=== PATIENT | male | born 1975 | race Caucasian/White ===

== ENCOUNTER 2017-09-15 21:53 | Emergency (ER) | payer BC ==
[2017-09-15] MEDS ORDERED: Lidocaine/EPINEPHrine/Tetracaine Soln 1 ML TOP ONE (22:38)
--- NOTE | 2017-09-15 23:39 | EDM.PDOC ---
ED HPI GENERAL MEDICAL PROBLEM - General Chief Complaint: Laceration Stated Complaint: FELL ON ICE HIT CHIN Time Seen by Provider: 09/15/17 22:29 Source of Information: Reports: Patient History Limitations: Reports: No Limitations - History of Present Illness INITIAL COMMENTS - FREE TEXT/NARRATIVE: The patient states that he slipped on ice, falling forward, and hitting his chin on the concrete ground around 20:30 tonight, suffering a laceration to his anterior right chin. He acknowledges that he has been drinking alcohol tonight. He denies any other injuries, including to his hands and knees. He states that it was no loss of consciousness. No prior similar injury. His last tetanus vaccination was about 2 years ago. Face Pain Score (Numeric/FACES): 5 - Related Data Allergies Allergy/AdvReac Type Severity Reaction Status Date / Time propofol Allergy Hives Verified 04/16/15 09:40 sodium Allergy Hives Verified 04/16/15 09:31 phenol Allergy Hives Uncoded 04/16/15 09:37 Home Meds: Home Meds Cyanocobalamin/FA/Pyridoxine [Folbee] 0 mg PO DAILY 09/15/17 [History] Famotidine [Pepcid] 0 mg PO DAILY 09/15/17 [History] Pantoprazole Sodium [Protonix] 40 mg PO DAILY 09/15/17 [History] Past Medical History - Past Surgical History HEENT Surgical History: Reports: Tonsillectomy GI Surgical History: Reports: Bariatric Procedure Social & Family History - Tobacco Use Smoking Status *Q: Former Smoker Used Tobacco, but Quit: Yes Month Tobacco Last Used: 12 yr - Caffeine Use Caffeine Use: Reports: Coffee, Energy Drinks, Soda, Tea - Recreational Drug Use Recreational Drug Use: No ED ROS GENERAL - Review of Systems Review Of Systems: ROS reveals no pertinent complaints other than HPI. ED EXAM, SKIN/RASH Exam: See Below Exam Limited By: No Limitations General Appearance: Alert, WD/WN, No Apparent Distress Eye Exam: Bilateral Eye: Normal Inspection Ears: Normal External Exam, Normal Canal, Hearing Grossly Normal, Normal TMs Nose: Normal Inspection, Normal Mucosa, No Blood Throat/Mouth: Normal Inspection, Normal Lips, Normal Teeth, Normal Gums, Normal Oropharynx, Normal Voice, No Airway Compromise Head: Normocephalic, Other ("V"-shaped laceration to the anterior right francisco, with each arm measuring approximately 0.75 cm, for total of a 1.5 cm laceration. No obvious contamination. No associated swelling, although there is a small abrasion to the anterior midline chin. Minimal, if any, tenderness to the area.) ED SKIN PROCEDURES - Laceration/Wound Repair Right Face Lac/Wound length In cm: 1.5 Appearance: Subcutaneous, Irregular, Clean Distal NVT: Neuro & Vascular Intact, No Tendon Injury Anesthetic Type: Topical (LET) Skin Prep: Providone-Iodine (Betadine) Exploration/Debridement/Repair: Wound Explored, In a Bloodless Field, Explored to Base, No Foreign Material Found, Wound Margins Revised Closed with: Sutures Suture Size: 3-0 # of Sutures: 3 Suture Type: Nylon, Interrupted, Simple Sterile Dressing Applied: None Tetanus Status Addressed: Yes Complications: No Course - Vital Signs Last Recorded V/S: Last Vital Signs Temp 36.5 C 09/15/17 22:12 Pulse 78 09/15/17 22:12 Resp 20 09/15/17 22:12 BP 137/100 H 09/15/17 22:12 Pulse Ox 96 09/15/17 22:12 - Orders/Labs/Meds Meds: Medications Discontinued Medications Generic Name Dose Route Start Last Admin Trade Name Freq PRN Reason Stop Dose Admin Lidocaine/Tetracaine 1 ml 09/15/17 22:38 09/15/17 22:46 Let Soln TOP 09/15/17 22:39 1 ml ONETIME ONE Administration - Re-Assessments/Exams Free Text/Narrative Re-Assessment/Exam: 09/15/17 23:36 The patient's chin laceration was sutured with 3 simple interrupted sutures using 3-0 Ethilon. The patient tolerated the procedure well. Care of the wound was described to the patient. Antibiotics will not be necessary so long as the patient follows my care instructions. The sutures should be ready for removal in 7 days. Departure - Departure Time of Disposition: 23:36 Disposition: Home, Self-Care 01 Condition: Good Clinical Impression: Laceration of chin - Discharge Information Instructions: Laceration Care, Adult, [id number] Referrals: Kenny Canseco MD [Primary Care Provider] - Forms: ED Department Discharge Additional Instructions: You were seen in the emergency room after slipping and falling on ice, cutting your chin. Your wound was closed with 3 sutures. Keep the wound clean with ordinary soap and water. Do not shave the area. Take [id number] Tylenol or ibuprofen as needed for discomfort. The sutures should be ready for removal in on 09/22/2017. This can be done at the walk-in clinic, at your doctor's office, or in the ER. If any other problems, please do not hesitate to return to the ER.
== END 2017-09-15 23:45 | disposition home or self-care (01) ==
LOC: JD.ED 21:53
DX: S01.81XA Laceration without foreign body of other part of head, initial encounter (principal); Z87.891 Personal history of nicotine dependence; Z79.899 Other long term (current) drug therapy; Z88.8 Allergy status to other drugs, medicaments and biological substances; Z91.09 Other allergy status, other than to drugs and biological substances; W00.2XXA Other fall from one level to another due to ice and snow, initial encounter
CPT/HCPCS: 12011; 99283; A9270; 99282-25

== ENCOUNTER 2017-10-07 19:05 | Emergency (ER) | payer BC ==
[2017-10-07] MEDS ORDERED: Sodium Chloride 0.9% 1,000 ML IV SCH (20:00)
--- NOTE | 2017-10-07 20:04 | EDM.PDOC ---
ED HPI GENERAL MEDICAL PROBLEM - General Chief Complaint: Abdominal Pain Stated Complaint: ABDOMINAL PAIN Time Seen by Provider: 10/07/17 19:34 Source of Information: Reports: Patient, Family (Son) History Limitations: Reports: Intoxication (possible) - History of Present Illness INITIAL COMMENTS - FREE TEXT/NARRATIVE: The patient states that he has been experiencing abdominal pain for the past 1.5 years. He underwent a colonoscopy last year which was negative. He states that he was initially placed on Pepcid, which did not help, then Prilosec, which he continues to take, along with occasional Pepcid, but states that his pain continues. The patient states that he has not previously undergone a CT scan evaluation of his abdomen. The patient now presents to the ED, stating that he ate a bagel this morning, and it increased his pain, then ate again around 14:00, which again increased his pain. He states that this pattern is no different than usual. When asked specifically why he is here today if his pain is no different than it has been for the past year and a half, he replied "I'm just fucking tired of it". The patient is unable to describe the character of the pain, other than it " just hurts". The pain is not modifiable, and does not radiate. The patient denies any associated nausea, emesis, constipation, diarrhea, urinary symptoms, or fever. The patient states that he underwent a gastric bypass on 10/09/2014, and that he is overdue to follow-up with his bariatric surgeon. The patient states that he drinks alcohol socially, and, in fact, was intoxicated when seen by me in this ED on 09/15/2017, and appears to be modestly intoxicated at this time, although he states that he has not had anything to drink today. The patient's PCP is Dr. Kenny Carlos. Bilateral Lower Abdominal Pain Score (Numeric/FACES): 9 - Related Data Allergies Allergy/AdvReac Type Severity Reaction Status Date / Time phenol Allergy Hives Uncoded 10/07/17 19:21 Home Meds: Home Meds Cyanocobalamin/FA/Pyridoxine [Folbee] 0 mg PO DAILY 09/15/17 [History] Famotidine [Pepcid] 0 mg PO DAILY 09/15/17 [History] Pantoprazole Sodium [Protonix] 40 mg PO DAILY 09/15/17 [History] Past Medical History HEENT History: Reports: Impaired Vision Gastrointestinal History: Reports: Other (See Below) (Chronic abdominal pain) - Past Surgical History HEENT Surgical History: Reports: Tonsillectomy GI Surgical History: Reports: Bariatric Procedure (Gastric bypass 10/09/2014) Social & Family History - Family History Family Medical History: Noncontributory - Tobacco Use Smoking Status *Q: Former Smoker Years of Tobacco use: 17 Packs/Tins Daily: 3 Month Tobacco Last Used: Quit around 2007 - Caffeine Use Caffeine Use: Reports: Coffee, Energy Drinks, Soda, Tea - Alcohol Use Alcohol Use History: Yes Alcohol Use Frequency: Socially - Recreational Drug Use Recreational Drug Use: No - Living Situation & Occupation Living situation: Reports: Single, with Family (Mother) Occupation: Employed ([employer]) ED ROS GENERAL - Review of Systems Review Of Systems: ROS reveals no pertinent complaints other than HPI. GI/Abdominal: Reports: Diarrhea (about 3 weeks ago), Vomiting (about 3 weeks ago ) ED EXAM, GI/ABD - Physical Exam Exam: See Below Exam Limited By: No Limitations General Appearance: Alert, WD/WN, No Apparent Distress Eyes: Bilateral: Normal Appearance, EOMI Ears: Normal External Exam, Hearing Grossly Normal Nose: Normal Inspection, No Blood Throat/Mouth: Normal Inspection, Normal Lips, Normal Voice, No Airway Compromise Head: Atraumatic, Normocephalic Neck: Normal Inspection, Full Range of Motion Respiratory/Chest: No Respiratory Distress, Lungs Clear, Normal Breath Sounds, No Accessory Muscle Use Cardiovascular: Normal Peripheral Pulses, Regular Rate, Rhythm, No Gallop, No JVD, No Murmur, No Rub GI/Abdominal Exam: Normal Bowel Sounds, Soft, No Organomegaly, No Distention, No Abnormal Bruit, No Mass, Pelvis Stable, Tender (Mild, generalized, non-focal) (Male) Exam: Deferred Rectal (Males) Exam: Deferred Back Exam: Normal Inspection, Full Range of Motion. No: CVA Tenderness (L), CVA Tenderness (R) Extremities: Normal Inspection, Normal Range of Motion, No Pedal Edema, Normal Capillary Refill Neurological: Alert, Oriented, No Motor/Sensory Deficits, Other (Possible alcohol intoxication, with mildly slurred speech, intolerance to answering questions) Psychiatric: Normal Affect Skin Exam: Warm, Dry, Intact, Normal Color, No Rash Course - Vital Signs Last Recorded V/S: Last Vital Signs Temp 36.4 C 10/07/17 19:16 Pulse 77 10/07/17 19:16 Resp 18 10/07/17 19:16 BP 138/101 H 10/07/17 19:16 Pulse Ox 98 10/07/17 19:16 - Orders/Labs/Meds Orders: Active Orders 24 hr Category Date Time Status Abdomen Pelvis w Cont [CT] Stat Exams 10/07/17 19:56 Taken Sodium Chloride 0.9% [Normal Saline] 1,000 ml Med 10/07/17 20:00 Active IV ASDIRECTED Sodium Chloride 0.9% [Saline Flush] Med 10/07/17 20:34 Active 10 ml FLUSH ONETIME PRN Medication Orders Sodium Chloride (Normal Saline) 1,000 mls @ 150 mls/hr IV ASDIRECTED MARY Last Admin: 10/07/17 20:14 Dose: 150 mls/hr Sodium Chloride (Saline Flush) 10 ml FLUSH ONETIME PRN PRN Reason: IV FLUSH Last Admin: 10/07/17 21:20 Dose: 10 ml Labs: Laboratory Tests 10/07/17 10/07/17 10/07/17 Range/Units 20:05 20:05 20:10 WBC 5.07 (4.23-9.07) K/mm3 RBC 5.33 (4.63-6.08) M/mm3 Hgb 14.8 (13.7-17.5) gm/L Hct 44.3 (40.1-51.0) % MCV 83.1 (79.0-92.2) fl MCH 27.8 (25.7-32.2) pg MCHC 33.4 (32.2-35.5) g/dl RDW Std Deviation 40.2 (35.1-43.9) fL Plt Count 251 (163-337) K/mm3 MPV 9.7 (9.4-12.3) fl Neutrophils % (Manual) 44 (40-60) % Band Neutrophils % 1 (0-10) % Lymphocytes % (Manual) 46 H (20-40) % Atypical Lymphs % 0 % Monocytes % (Manual) 4 (2-10) % Eosinophils % (Manual) 3 (0.8-7.0) % Basophils % (Manual) 2 H (0.2-1.2) Platelet Estimate Adequate RBC Morph Comment Normal Sodium 141 (136-145) mEq/L Potassium 4.3 (3.5-5.1) mEq/L Chloride 105 (98-107) mEq/L Carbon Dioxide 24 (21-32) mEq/L Anion Gap 16.3 H (5-15) BUN 11 (7-18) mg/dL Creatinine 0.8 (0.7-1.3) mg/dL Est Cr Clr Drug Dosing 116.38 mL/min Estimated GFR (MDRD) > 60 (>60) mL/min BUN/Creatinine Ratio 13.8 L (14-18) Glucose 102 (74-106) mg/dL Calcium 8.6 (8.5-10.1) mg/dL Total Bilirubin 1.2 H (0.2-1.0) mg/dL AST 16 (15-37) U/L ALT 24 (16-63) U/L Alkaline Phosphatase 74 (46-116) U/L Total Protein 6.6 (6.4-8.2) g/dl Albumin 3.8 (3.4-5.0) g/dl Globulin 2.8 gm/dL Albumin/Globulin Ratio 1.4 (1-2) Lipase 145 (73-393) U/L Urine Color Yellow (Yellow) Urine Appearance Clear (Clear) Urine pH 6.0 (5.0-8.0) Ur Specific [place] > or = 1.030 (1.005-1.030) Urine Protein Negative (Negative) Urine Glucose (UA) Negative (Negative) Urine Ketones Trace H (Negative) Urine Occult Blood Negative (Negative) Urine Nitrite Negative (Negative) Urine Bilirubin Negative (Negative) Urine Urobilinogen 0.2 (0.2-1.0) Ur Leukocyte Esterase Negative (Negative) Urine RBC 0-5 (0-5) /hpf Urine WBC 0-5 (0-5) /hpf Ur Epithelial Cells 0-5 (0-5) /hpf Urine Bacteria Occasional (FEW) /hpf Urine Mucus Few (FEW) /hpf Meds: Medications Generic Name Dose Route Start Last Admin Trade Name Freq PRN Reason Stop Dose Admin Sodium Chloride 1,000 mls @ 150 mls/hr 10/07/17 20:00 10/07/17 20:14 Normal Saline IV 150 mls/hr ASDIRECTED MARY Administration Sodium Chloride 10 ml 10/07/17 20:34 10/07/17 21:20 Saline Flush FLUSH 10 ml ONETIME PRN Administration IV FLUSH Discontinued Medications Generic Name Dose Route Start Last Admin Trade Name [place] PRN Reason Stop Dose Admin Diatrizoate Meglum/Diatrizoate Sod 120 ml 10/07/17 20:34 10/07/17 21:19 Gastrografin 37% PO 10/07/17 20:35 90 ml ONETIME ONE Administration Iopamidol 150 ml 10/07/17 20:34 10/07/17 21:19 Isovue-300 (61%) IVPUSH 10/07/17 20:35 125 ml ONETIME ONE Administration - Re-Assessments/Exams Free Text/Narrative Re-Assessment/Exam: 10/07/17 23:43 CT of the abdomen and pelvis with oral and IV contrast is read by [facility] as: 1. Moderate amount of stool in the colon 2. Dusky appearance to the central mesenteric fat which can be seen as a normal variant or mesenteric panniculitis. 3. Mild pulmonary edema. 10/07/17 23:51 Test results discussed with the patient and his son. 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 There are no signs of obstruction, therefore the recommended treatment is tamoxifen and prednisone , with reassessment in 3 months. These medications would not be appropriate for me to start here in the ED. I will refer the patient to Dr. Dos Santos, a Business Quality Assurance Analyst at [facility]. I will push the CT images to [facility] now. Departure - Departure Time of Disposition: 23:58 Disposition: Home, Self-Care 01 Condition: Good Clinical Impression: Mesenteric panniculitis - Discharge Information Referrals: Kenny Canseco MD [Primary Care Provider] - Nicole Dos Santos MD [Ordering Only Provider] - Forms: ED Department Discharge Additional Instructions: You were seen in the emergency room for lower abdominal pain for the past one and a half years. Workup in the ER included blood work, a urinalysis, and a CT scan of your abdomen and pelvis. Your CT scan indicates that you MIGHT have a condition known as mesenteric panniculitis, an inflammatory process of the intestines that can cause scarring. We recommend that you follow-up with the Business Quality Assurance Analyst Dr. Dos Santos at the next available appointment. He can review your CT scan and determine for himself if you have this condition. Your CT scan images have already been sent to [facility]. If any other problems, please do not hesitate to return to the ER. - My Orders Last 24 Hours: My Active Orders 10/07/17 19:56 Abdomen Pelvis w Cont [CT] Stat 10/07/17 20:00 Sodium Chloride 0.9% [Normal Saline] 1,000 ml IV ASDIRECTED 10/07/17 20:34 Sodium Chloride 0.9% [Saline Flush] 10 ml FLUSH ONETIME PRN - Assessment/Plan Last 24 Hours: My Active Orders 10/07/17 19:56 Abdomen Pelvis w Cont [CT] Stat 10/07/17 20:00 Sodium Chloride 0.9% [Normal Saline] 1,000 ml IV ASDIRECTED 10/07/17 20:34 Sodium Chloride 0.9% [Saline Flush] 10 ml FLUSH ONETIME PRN
[2017-10-07] MEDS ORDERED: Sodium Chloride 0.9% 10 ML Syringe FLUSH PRN (20:34)
[2017-10-07] MEDS ORDERED: Iopamidol 612 MG/ML 150 ML Bottle IVPUSH ONE (20:34)
[2017-10-07] MEDS ORDERED: Diatrizoate Meglumine/Diatrizoate Sodium 37% 120 ML Bottle PO ONE (20:34)
--- NOTE | 2017-10-08 12:26 | CT ---
CT abdomen and pelvis Technique: Multiple axial sections were obtained from above the dome of the diaphragm inferiorly through the pubic symphysis. Intravenous and oral contrast has been given. Comparison: Previous right upper quadrant abdominal ultrasound of 04/16/15, no prior CT exam. Findings: Lung markings are slightly increased within both lung bases. Liver shows no focal parenchymal abnormality. Spleen appears within normal limits. Small hiatal hernia is seen with mild gastroesophageal reflux. Adrenal glands show no nodule. Pancreas appears within normal limits. Kidneys show symmetric contrast enhancement without hydronephrosis or mass. Aorta shows minimal atherosclerotic change without aneurysmal dilatation. Atherosclerotic change continues into the iliac vessels. No pelvic mass or adenopathy is seen. Abdominal wall shows no hernia. Bowel appears within normal limits. Very slight haziness is noted within the central mesentery with adjacent mesenteric lymph nodes most likely incidental. No free fluid or inflammatory change is seen. Bone window settings were reviewed which appear within normal limits for the patient's age with incidental scattered degenerative change. Impression: 1. Slight haziness within the central mesentery with mild adjacent mesenteric lymph nodes. These findings are felt to be normal variant. 2. Lung markings minimally increased within both lung bases most likely accentuated from technique. Obtain chest x-ray if patient has any pulmonary symptoms. 3. Small hiatal hernia with minimal gastroesophageal reflux. 4. Nothing acute is otherwise appreciated on CT study of the abdomen and pelvis. Diagnostic code #3 Agree with preliminary report issued by [facility] ([facility] preliminary report dictated on 10/07/17, 10:47 PM Central Time)
== END 2017-10-08 00:09 | disposition home or self-care (01) ==
LOC: JD.ED 19:05
DX: K65.4 Sclerosing mesenteritis (principal); Z87.891 Personal history of nicotine dependence; Z79.899 Other long term (current) drug therapy; Z88.8 Allergy status to other drugs, medicaments and biological substances
CPT/HCPCS: 36415; 74177; 80053; 81001; 83690; 85025; 96360; 96361; 99284; J7040; J7050; Q9963; Q9967

== ENCOUNTER 2018-04-10 07:03 | Emergency (ER) | payer BC ==
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
[2018-04-10] MEDS ORDERED: Sodium Chloride 0.9% 10 ML Syringe FLUSH PRN (08:18)
[2018-04-10] MEDS ORDERED: HYDROmorphone 0.5 MG/0.5 ML SYRINGE IVPUSH ONE (08:53)
[2018-04-10] MEDS ORDERED: Sodium Chloride 0.9% 10 ML Syringe FLUSH ONE (08:56)
[2018-04-10] MEDS ORDERED: Iopamidol 755 Mg/ML 100 ML Bottle IVPUSH ONE (08:56)
[2018-04-10] MEDS ORDERED: Sodium Chloride 0.9% 100 ML IV SCH (09:00)
--- NOTE | 2018-04-10 09:18 | CR ---
Chest: Two views of the chest were obtained. Comparison: No prior chest x-ray. Heart is enlarged. Pulmonary vessels are congested. Ivan B lines are noted compatible with early interstitial pulmonary edema. No alveolar densities are seen at this time. Minimal thickening of the minor fissure seen likely representing fluid. Impression: 1. Findings compatible with CHF as described above. Diagnostic code #3
--- NOTE | 2018-04-10 10:22 | CT ---
CT chest Technique: Multiple axial sections through the chest were obtained. Intravenous contrast was utilized. Findings: Pulmonary arteries are well opacified. No filling defects are seen to indicate pulmonary embolism. Heart is diffusely enlarged. Prominent coronary artery calcification is seen. Small right sided pleural effusion is seen. Multiple small peripheral nodules are seen within both lungs which are noncalcified. Thickening around the vascular markings is seen compatible with pulmonary vascular congestion. Several mediastinal lymph nodes are seen which are felt to be within normal limits. Small nonobstructing calculus is noted within the left kidney. Previous bowel surgery/gastric surgery is noted. Bone window settings were reviewed which shows mild scattered degenerative change within the spine. Impression: 1. Cardiomegaly with pulmonary vascular congestion and small right-sided pleural effusion. 2. No findings of pulmonary embolism. 3. Fairly extensive coronary artery calcification. 4. Multiple small peripheral nodules within both lungs which show no calcifications and are nonspecific regarding etiology. Recommend follow-up noncontrast chest CT in 3 months to further evaluate for stability. 5. Other incidental findings. Diagnostic code #9
[2018-04-10] MEDS ORDERED: Aspirin 81 MG Tab.Chew PO ONE (11:37)
[2018-04-10] MEDS ORDERED: Heparin Sodium 5,000 Units/ML Vial IVPUSH ONE (11:37)
[2018-04-10] MEDS ORDERED: Nitroglycerin/D5W 25 MG/250 ML BOTTLE IV SCH (11:45)
[2018-04-10] MEDS ORDERED: Heparin Sodium/D5W 25,000 UNITS/500 ML BAG IV SCH (11:45)
== END 2018-04-10 12:33 ==
LOC: JD.ED 07:03
DX: I21.4 Non-ST elevation (NSTEMI) myocardial infarction (principal); I10 Essential (primary) hypertension; E78.00 Pure hypercholesterolemia, unspecified; I50.9 Heart failure, unspecified
CPT/HCPCS: 36415; 71046; 71275; 80053; 83880; 84484; 85025; 85379; 93005; 96365; 96368; 96375; 96376; 99285; A9270; J1170; J1644; J3490; J7030; J7050; Q9967; 93010; 99284-25

== ENCOUNTER 2022-08-07 23:32 | Emergency (ER) | payer OTHER ==
[2022-08-08] MEDS ORDERED: Oxymetazoline 0.05% Nasal Spray 30 ML Bottle NAS ONE (01:00)
[2022-08-08] MEDS ORDERED: Oxymetazoline 0.05% Nasal Spray 30 ML Bottle ONE (01:15)
== END 2022-08-08 03:00 | disposition home or self-care (01) ==
LOC: JD.ED 23:32
DX: R04.0 Epistaxis (principal); E78.00 Pure hypercholesterolemia, unspecified; I10 Essential (primary) hypertension; Z79.82 Long term (current) use of aspirin; Z79.01 Long term (current) use of anticoagulants; Z79.899 Other long term (current) drug therapy; Z88.8 Allergy status to other drugs, medicaments and biological substances; Z88.6 Allergy status to analgesic agent
CPT/HCPCS: 30901; 99283; A9270

== ENCOUNTER 2022-09-01 13:27 | Emergency (ER) | payer OTHER ==
[2022-09-01] MEDS ORDERED: Tranexamic Acid 1,000 MG/10 ML Vial ONE (13:57)
[2022-09-01] MEDS ORDERED: Lidocaine 1% with EPINEPHrine 1:100,000 10 ML MDV INJECT ONE (13:57)
[2022-09-01] MEDS ORDERED: Oxymetazoline 0.05% Nasal Spray 30 ML Bottle NAS ONE (13:57)
[2022-09-01] MEDS ORDERED: Lidocaine 2% with EPINEPHrine 1:200,000 20 ML SDV INJECT ONE (14:45)
== END 2022-09-01 16:50 | disposition home or self-care (01) ==
LOC: JD.ED 13:27
DX: R04.0 Epistaxis (principal); E78.00 Pure hypercholesterolemia, unspecified; I10 Essential (primary) hypertension; Z88.8 Allergy status to other drugs, medicaments and biological substances; Z79.82 Long term (current) use of aspirin; Z79.899 Other long term (current) drug therapy; Z79.01 Long term (current) use of anticoagulants
CPT/HCPCS: 30903; 99283; A9270

== ENCOUNTER 2022-09-03 13:18 | Emergency (ER) | payer OTHER | END 2022-09-03 14:39 | disposition home or self-care (01) | LOC: JD.ED 13:18 | DX: R04.0 Epistaxis (principal); E78.00 Pure hypercholesterolemia, unspecified; I10 Essential (primary) hypertension; Z88.5 Allergy status to narcotic agent; Z88.8 Allergy status to other drugs, medicaments and biological substances; Z79.01 Long term (current) use of anticoagulants; Z79.82 Long term (current) use of aspirin; Z79.899 Other long term (current) drug therapy | CPT/HCPCS: 99282 ==

== ENCOUNTER 2023-04-16 12:26 | Emergency (ER) | payer MEDICARE, OTHER ==
[2023-04-16 13:41] LABS: BASOPHILS ABSOLUTE AUTO 0.01 K/mm3 (0.01-0.08); BASOPHILS PERCENT AUTO 0.1 % (0.1-1.2); EOSINOPHILS ABSOLUTE AUTO 0.04 K/mm3 (0.04-0.54); EOSINOPHILS PERCENT AUTO 0.4 (0.8-7.0); HEMATOCRIT 45.5 % (40.1-51.0); HEMOGLOBIN 14.9 gm/dl (13.7-17.5); IMMATURE GRAN ABSOLUTE AUTO 0.01 K/mm3 (0.00-0.10); IMMATURE GRAN PERCENT AUTO 0.1 % (<=1.0); LYMPHOCYTES ABSOLUTE AUTO 1.22 K/mm3 (1.32-3.57); LYMPHOCYTES PERCENT AUTO 11.6 % (21.8-53.1); MEAN CORPUSCULAR HEMOGLOBIN 25.1 pg (25.7-32.2); MEAN CORPUSCULAR HGB CONC 32.7 g/dl (32.2-35.5); MEAN CORPUSCULAR VOLUME 76.6 fl (79.0-92.2); MEAN PLATELET VOLUME 9.1 fl (9.4-12.3); MONOCYTES ABSOLUTE AUTO 0.61 K/mm3 (0.30-0.82); MONOCYTES PERCENT AUTO 5.8 % (5.3-12.2); NEUTROPHILS ABSOLUTE AUTO 8.61 K/mm3 (1.78-5.38); PLATELET COUNT,PLT 302 K/mm3 (163-337); RED BLOOD CELL COUNT 5.94 M/mm3 (4.63-6.08)
[2023-04-16] MEDS ORDERED: Aluminum Hydroxide/Magnesium Hydroxide/Simethicone Susp 30 ML Cup PO ONE (14:00)
[2023-04-16 14:04] LABS: A/G RATIO 0.9 (1-2); ALANINE AMINOTRANSFERASE,ALT 23 U/L (16-63); ALBUMIN 3.5 g/dl (3.4-5.0); ALKALINE PHOSPHATASE 104 U/L (46-116); ANION GAP 11.7 (5-15); ASPARTATE AMNIOTRANSFERASE,AST 16 U/L (15-37); BILIRUBIN TOTAL 1.2 mg/dL (0.2-1.0); BLOOD UREA NITROGEN,BUN 13 mg/dL (7-18); C-REACTIVE PROTEIN 5.1 mg/dL (<1.0); CALCIUM 9.2 mg/dL (8.5-10.1); CARBON DIOXIDE,CO2 28 mEq/L (21-32); CHLORIDE,CL 97 mEq/L (98-107); ESTIMATED GFR 93 mL/min (>60); GLUCOSE RANDOM 134 mg/dL (70-99); LIPASE 50 U/L (73-393); POTASSIUM,K 3.7 mEq/L (3.5-5.1); PROTEIN TOTAL,TP 7.5 g/dl (6.4-8.2); SODIUM,NA 133 mEq/L (136-145); TROPONIN I HIGH SENSITIVITY < 4 pg/mL (<=76)
[2023-04-16] MEDS ORDERED: Metoclopramide 10 MG Tab PO ONE (15:38)
[2023-04-16] MEDS ORDERED: Sucralfate Suspension 1 GM/10 ML Cup PO ONE (15:38)
== END 2023-04-16 17:15 | disposition home or self-care (01) ==
LOC: JD.ED 12:26
DX: R11.10 Vomiting, unspecified (principal); R10.13 Epigastric pain; E78.00 Pure hypercholesterolemia, unspecified; I10 Essential (primary) hypertension; Z86.16 Personal history of COVID-19; Z79.899 Other long term (current) drug therapy; Z79.82 Long term (current) use of aspirin; Z88.8 Allergy status to other drugs, medicaments and biological substances
CPT/HCPCS: 36415; 76705; 80053; 83690; 84484; 85025; 86140; 93005; 99284; A9270; 93010; 99283

== ENCOUNTER 2023-07-13 20:17 | Emergency (ER) | payer MEDICARE, OTHER ==
[2023-07-13] MEDS ORDERED: Sodium Chloride 0.9% 10 ML Syringe FLUSH PRN (20:38)
[2023-07-13] MEDS ORDERED: Ondansetron 4 MG/2 ML SDV IVPUSH ONE (20:38)
[2023-07-13] MEDS ORDERED: Sodium Chloride 0.9% 1,000 ML IV ONE (20:38)
[2023-07-13 20:58] LABS: BASOPHILS PERCENT AUTO 0.1 % (0.0-1.0); EOSINOPHILS PERCENT AUTO 0.4 % (0.0-6.0); HEMATOCRIT 49.1 % (42.0-52.0); HEMOGLOBIN 15.9 gm/dl (14.0-18.0); IMMATURE GRAN ABSOLUTE AUTO 0.01 K/mm3 (0.00-0.05); IMMATURE GRAN PERCENT AUTO 0.1 % (0.0-0.4); LYMPHOCYTES ABSOLUTE AUTO 1.1 K/mm3 (1.0-4.8); LYMPHOCYTES PERCENT AUTO 10.5 % (24.0-44.0); MEAN CORPUSCULAR HGB CONC 32.4 g/dl (32.0-36.0); MEAN CORPUSCULAR VOLUME 83.4 fl (83.0-99.0); MONOCYTES ABSOLUTE AUTO 0.7 K/mm3 (0.0-0.8); MONOCYTES PERCENT AUTO 7.4 % (0.0-8.0); NEUTROPHILS ABSOLUTE AUTO 8.2 K/mm3 (1.8-7.7); NEUTROPHILS PERCENT AUTO 81.5 % (41.0-71.0); PLATELET COUNT,PLT 240 K/mm3 (150-400); RED BLOOD CELL COUNT 5.89 M/mm3 (4.52-5.90); WHITE BLOOD CELL COUNT,WBC 10.02 K/mm3 (3.9-11.3)
[2023-07-13 21:20] LABS: A/G RATIO 1.1 (1-2); ALBUMIN 4.1 g/dl (3.4-5.0); ANION GAP 16.1 (5-15); BILIRUBIN TOTAL 1.7 mg/dL (0.2-1.0); BUN/CREATININE RATIO 17.3 (14-18); C-REACTIVE PROTEIN 4.3 mg/dL (<1.0); CALCIUM 9.8 mg/dL (8.5-10.1); CREATININE 1.1 mg/dL (0.7-1.3); EST CRCL DRUG DOSING (CG) 79.45 mL/min; MAGNESIUM 1.9 mg/dL (1.8-2.4); POTASSIUM,K 4.1 mEq/L (3.5-5.1); PROTEIN TOTAL,TP 7.8 g/dl (6.4-8.2)
[2023-07-13] MEDS ORDERED: Prochlorperazine 10 MG/2 ML SDV IVPUSH ONE (21:28)
== END 2023-07-13 23:12 | disposition home or self-care (01) ==
LOC: JD.ED 20:17
DX: A08.4 Viral intestinal infection, unspecified (principal); I10 Essential (primary) hypertension; E78.00 Pure hypercholesterolemia, unspecified; Z86.16 Personal history of COVID-19; Z79.899 Other long term (current) drug therapy; Z88.8 Allergy status to other drugs, medicaments and biological substances
CPT/HCPCS: 36415; 71046; 80053; 83690; 83735; 85025; 86140; 96361; 96374; 96375; 99284; J0780; J2405; J7030

== ENCOUNTER 2023-07-18 20:02 | Emergency (ER) | payer MEDICARE, OTHER ==
[2023-07-18] MEDS ORDERED: Ondansetron 8 MG in Sodium Chloride 0.9% 50 ML IV ONE (20:57)
[2023-07-18] MEDS ORDERED: Pantoprazole 40 MG in Sodium Chloride 0.9% 100 ML IV ONE (21:02)
[2023-07-18] MEDS ORDERED: Sodium Chloride 0.9% 10 ML Syringe FLUSH PRN (21:02)
[2023-07-18] MEDS ORDERED: Sodium Chloride 0.9% 1,000 ML IV ONE (21:03)
[2023-07-18] MEDS ORDERED: Ondansetron 4 MG/2 ML SDV ONE ×2 (21:14→21:33)
[2023-07-18 21:30] LABS: BASOPHILS PERCENT AUTO 0.3 % (0.0-1.0); EOSINOPHILS ABSOLUTE AUTO 0.1 K/mm3 (0.0-0.4); IMMATURE GRAN ABSOLUTE AUTO 0.01 K/mm3 (0.00-0.05); IMMATURE GRAN PERCENT AUTO 0.2 % (0.0-0.4); LYMPHOCYTES ABSOLUTE AUTO 1.1 K/mm3 (1.0-4.8); LYMPHOCYTES PERCENT AUTO 16.2 % (24.0-44.0); MEAN CORPUSCULAR HEMOGLOBIN 26.9 pg (28.0-32.0); MEAN CORPUSCULAR HGB CONC 33.3 g/dl (32.0-36.0); MEAN CORPUSCULAR VOLUME 80.8 fl (83.0-99.0); MEAN PLATELET VOLUME 8.8 fl (9.4-12.4); MONOCYTES ABSOLUTE AUTO 0.9 K/mm3 (0.0-0.8); MONOCYTES PERCENT AUTO 13.9 % (0.0-8.0); NEUTROPHILS ABSOLUTE AUTO 4.4 K/mm3 (1.8-7.7); NEUTROPHILS PERCENT AUTO 67.4 % (41.0-71.0); PLATELET COUNT,PLT 225 K/mm3 (150-400); RED BLOOD CELL COUNT 5.94 M/mm3 (4.52-5.90); WHITE BLOOD CELL COUNT,WBC 6.54 K/mm3 (3.9-11.3)
[2023-07-18] MEDS ORDERED: Pantoprazole 40 MG Vial IVPUSH ONE (21:30)
[2023-07-18 21:56] LABS: A/G RATIO 1.2 (1-2); ALBUMIN 3.9 g/dl (3.4-5.0); ANION GAP 14.5 (5-15); BILIRUBIN TOTAL 1.6 mg/dL (0.2-1.0); BUN/CREATININE RATIO 17.8 (14-18); CALCIUM 9.4 mg/dL (8.5-10.1); CREATININE 0.9 mg/dL (0.7-1.3); EST CRCL DRUG DOSING (CG) 97.11 mL/min; MAGNESIUM 1.8 mg/dL (1.8-2.4); POTASSIUM,K 3.5 mEq/L (3.5-5.1); PROTEIN TOTAL,TP 7.3 g/dl (6.4-8.2)
== END 2023-07-19 00:18 | disposition home or self-care (01) ==
LOC: JD.ED 20:02
DX: U07.1 COVID-19 (principal); A08.4 Viral intestinal infection, unspecified; E78.00 Pure hypercholesterolemia, unspecified; I10 Essential (primary) hypertension; Z86.16 Personal history of COVID-19; Z88.8 Allergy status to other drugs, medicaments and biological substances; Z88.6 Allergy status to analgesic agent; Z79.82 Long term (current) use of aspirin; Z79.01 Long term (current) use of anticoagulants; Z79.899 Other long term (current) drug therapy
CPT/HCPCS: 36415; 80053; 83735; 85025; 96365; 96375; 99284; C9113; J2405; J3490; J7030

== ENCOUNTER 2024-04-22 17:29 | Emergency (ER) | payer MEDICARE, OTHER ==
[2024-04-22] MEDS: Sodium Chloride 0.9% 1,000 ML IV ONE (20:41)
[2024-04-22] MEDS: Ondansetron 4 MG/2 ML SDV IVPUSH ONE (20:42)
[2024-04-22] MEDS: Sodium Chloride 0.9% 10 ML Syringe FLUSH PRN (20:42)
[2024-04-22 20:49] LABS: BASOPHILS PERCENT AUTO 0.3 % (0.0-1.0); EOSINOPHILS ABSOLUTE AUTO 0.1 K/mm3 (0.0-0.4); EOSINOPHILS PERCENT AUTO 0.9 % (0.0-6.0); HEMATOCRIT 45.9 % (42.0-52.0); HEMOGLOBIN 14.9 gm/dl (14.0-18.0); IMMATURE GRAN ABSOLUTE AUTO 0.02 K/mm3 (0.00-0.05); IMMATURE GRAN PERCENT AUTO 0.3 % (0.0-0.4); LYMPHOCYTES ABSOLUTE AUTO 1.4 K/mm3 (1.0-4.8); LYMPHOCYTES PERCENT AUTO 17.6 % (24.0-44.0); MEAN CORPUSCULAR HEMOGLOBIN 25.8 pg (28.0-32.0); MEAN CORPUSCULAR HGB CONC 32.5 g/dl (32.0-36.0); MEAN CORPUSCULAR VOLUME 79.4 fl (83.0-99.0); MEAN PLATELET VOLUME 8.9 fl (9.4-12.4); MONOCYTES ABSOLUTE AUTO 0.7 K/mm3 (0.0-0.8); MONOCYTES PERCENT AUTO 8.4 % (0.0-8.0); NEUTROPHILS ABSOLUTE AUTO 5.7 K/mm3 (1.8-7.7); NEUTROPHILS PERCENT AUTO 72.5 % (41.0-71.0); PLATELET COUNT,PLT 254 K/mm3 (150-400); RED BLOOD CELL COUNT 5.78 M/mm3 (4.52-5.90); WHITE BLOOD CELL COUNT,WBC 7.85 K/mm3 (3.9-11.3)
[2024-04-22 21:13] LABS: A/G RATIO 0.8 (1-2); ALBUMIN 3.3 g/dl (3.4-5.0); ANION GAP 10.4 (5-15); BILIRUBIN TOTAL 1.8 mg/dL (0.2-1.0); C-REACTIVE PROTEIN 10.06 mg/dL (<0.30); CALCIUM 9.6 mg/dL (8.5-10.1); CREATININE 1.1 mg/dL (0.7-1.3); EST CRCL DRUG DOSING (CG) 78.59 mL/min; MAGNESIUM 1.7 mg/dL (1.8-2.4); POTASSIUM,K 3.4 mEq/L (3.5-5.1); PROTEIN TOTAL,TP 7.6 g/dl (6.4-8.2)
[2024-04-22 23:39] LABS: CORONAVIRUS COVID-19 NAA NEGATIVE (NEGATIVE); INFLUENZA A NAA NEGATIVE (NEGATIVE); RESPIRATORY SYNCYTIAL VIR NAA NEGATIVE (NEGATIVE)
[2024-04-23] MEDS: Prochlorperazine 10 MG/2 ML SDV IVPUSH ONE (00:01)
[2024-04-23 00:16] LABS: APPEARANCE,URINE SLT CLOUDY (Clear); BILIRUBIN,URINE 1+ (Negative); COLOR,URINE YELLOW (Yellow); GLUCOSE,URINE NEGATIVE (Negative); KETONES,URINE TRACE (Negative); LEUKOCYTE ESTERASE,URINE NEGATIVE (Negative); NITRITE,URINE NEGATIVE (Negative); OCCULT BLOOD,URINE NEGATIVE (Negative); PH,URINE 5.5 (5.0-8.0); PROTEIN,URINE TRACE (Negative)
[2024-04-23 00:41] LABS: RBC,URINE 0-5 /hpf (0-5)
[2024-04-23 00:42] LABS: BACTERIA,URINE FEW /hpf (FEW); EPITHELIAL CELLS,URINE 0-5 /hpf (0-5); MUCUS,URINE MODERATE /hpf (FEW)
== END 2024-04-23 01:02 | disposition home or self-care (01) ==
LOC: JD.ED 17:29
DX: A08.4 Viral intestinal infection, unspecified (principal); R11.2 Nausea with vomiting, unspecified; I10 Essential (primary) hypertension; E78.00 Pure hypercholesterolemia, unspecified; Z88.8 Allergy status to other drugs, medicaments and biological substances; Z79.82 Long term (current) use of aspirin; Z79.01 Long term (current) use of anticoagulants; Z79.899 Other long term (current) drug therapy; Z86.16 Personal history of COVID-19
CPT/HCPCS: 0241U; 36415; 80053; 81001; 83690; 83735; 85025; 86140; 96361; 96374; 96375; 99284; J0780; J2405; J3490; J7030

== ENCOUNTER 2024-12-14 12:24 | Emergency (ER) | payer MEDICARE, OTHER ==
[2024-12-14] MEDS ORDERED: Sodium Chloride 0.9% 10 ML Syringe FLUSH PRN (12:59)
[2024-12-14 13:24] LABS: BASOPHILS PERCENT AUTO 0.4 % (0.0-1.0); EOSINOPHILS ABSOLUTE AUTO 0.1 K/mm3 (0.0-0.4); EOSINOPHILS PERCENT AUTO 1.9 % (0.0-6.0); HEMATOCRIT 45.5 % (42.0-52.0); HEMOGLOBIN 14.5 gm/dl (14.0-18.0); IMMATURE GRAN ABSOLUTE AUTO 0.01 K/mm3 (0.00-0.05); IMMATURE GRAN PERCENT AUTO 0.2 % (0.0-0.4); LYMPHOCYTES ABSOLUTE AUTO 1.8 K/mm3 (1.0-4.8); LYMPHOCYTES PERCENT AUTO 37.2 % (24.0-44.0); MEAN CORPUSCULAR HEMOGLOBIN 25.4 pg (28.0-32.0); MEAN CORPUSCULAR HGB CONC 31.9 g/dl (32.0-36.0); MEAN CORPUSCULAR VOLUME 79.7 fl (83.0-99.0); MEAN PLATELET VOLUME 8.4 fl (9.4-12.4); MONOCYTES ABSOLUTE AUTO 0.4 K/mm3 (0.0-0.8); MONOCYTES PERCENT AUTO 7.3 % (0.0-8.0); NEUTROPHILS ABSOLUTE AUTO 2.5 K/mm3 (1.8-7.7); RED BLOOD CELL COUNT 5.71 M/mm3 (4.52-5.90); WHITE BLOOD CELL COUNT,WBC 4.79 K/mm3 (3.9-11.3)
[2024-12-14 13:26] LABS: PLATELET COUNT,PLT 170 K/mm3 (150-400)
[2024-12-14 13:51] LABS: A/G RATIO 0.9 (1-2); ALANINE AMINOTRANSFERASE,ALT 38 U/L (16-63); ALBUMIN 3.4 g/dl (3.4-5.0); ALKALINE PHOSPHATASE 83 U/L (46-116); ANION GAP 8.4 (5-15); ASPARTATE AMNIOTRANSFERASE,AST 24 U/L (15-37); BILIRUBIN TOTAL 0.8 mg/dL (0.2-1.0); BLOOD UREA NITROGEN,BUN 11 mg/dL (7-18); BUN/CREATININE RATIO 13.8 (14-18); CALCIUM 8.5 mg/dL (8.5-10.1); CARBON DIOXIDE,CO2 30 mEq/L (21-32); CHLORIDE,CL 99 mEq/L (98-107); CREATININE 0.8 mg/dL (0.7-1.3); EST CRCL DRUG DOSING (CG) 106.88 mL/min; ESTIMATED GFR 108 mL/min (>60); GLUCOSE RANDOM 123 mg/dL (70-99); POTASSIUM,K 3.4 mEq/L (3.5-5.1); SODIUM,NA 134 mEq/L (136-145)
[2024-12-14 13:52] LABS: TROPONIN I HIGH SENSITIVITY < 4 pg/mL (<=76)
== END 2024-12-14 14:45 | disposition home or self-care (01) ==
LOC: JD.ED 12:24
DX: J18.9 Pneumonia, unspecified organism (principal); I10 Essential (primary) hypertension; E78.00 Pure hypercholesterolemia, unspecified; I25.2 Old myocardial infarction; Z90.49 Acquired absence of other specified parts of digestive tract; Z86.16 Personal history of COVID-19; Z79.82 Long term (current) use of aspirin; Z79.899 Other long term (current) drug therapy; Z79.1 Long term (current) use of non-steroidal anti-inflammatories (NSAID); Z88.8 Allergy status to other drugs, medicaments and biological substances; Z88.6 Allergy status to analgesic agent
CPT/HCPCS: 36415; 71045; 71045-26; 80053; 83880; 84484; 85025; 87428-QW; 93005; 93010; 99283; 99285

== ENCOUNTER 2025-01-31 16:39 | Emergency (ER) | payer MEDICARE, OTHER ==
[2025-01-31] MEDS ORDERED: Naloxone 0.4 MG/ML SDV IVPUSH PRN (19:08)
[2025-01-31] MEDS ORDERED: HYDROmorphone 0.5 MG/0.5 ML Syringe IM ONE (19:08)
[2025-01-31] MEDS: Acetaminophen/HYDROcodone 325-5 MG Tab PO ONE (19:58)
== END 2025-01-31 20:00 | disposition home or self-care (01) ==
LOC: JD.ED 16:39
DX: M25.551 Pain in right hip (principal); I25.2 Old myocardial infarction; I10 Essential (primary) hypertension; E78.00 Pure hypercholesterolemia, unspecified; Z86.16 Personal history of COVID-19; Z90.49 Acquired absence of other specified parts of digestive tract; Z98.84 Bariatric surgery status; Z88.8 Allergy status to other drugs, medicaments and biological substances; Z79.82 Long term (current) use of aspirin; Z79.51 Long term (current) use of inhaled steroids; Z79.899 Other long term (current) drug therapy
CPT/HCPCS: 72192; 99283; A9270; 99284

== ENCOUNTER 2025-02-12 21:20 | Emergency (ER) | payer OTHER, MEDICARE ==
[2025-02-12] MEDS ORDERED: Sodium Chloride 0.9% 10 ML Syringe FLUSH PRN (21:26)
[2025-02-12 21:42] LABS: BASOPHILS PERCENT AUTO 0.2 % (0.0-1.0); EOSINOPHILS ABSOLUTE AUTO 0.1 K/mm3 (0.0-0.4); EOSINOPHILS PERCENT AUTO 1.1 % (0.0-6.0); HEMOGLOBIN 13.9 gm/dl (14.0-18.0); IMMATURE GRAN ABSOLUTE AUTO 0.02 K/mm3 (0.00-0.05); IMMATURE GRAN PERCENT AUTO 0.2 % (0.0-0.4); LYMPHOCYTES ABSOLUTE AUTO 2.2 K/mm3 (1.0-4.8); LYMPHOCYTES PERCENT AUTO 23.8 % (24.0-44.0); MEAN CORPUSCULAR HEMOGLOBIN 25.2 pg (28.0-32.0); MEAN CORPUSCULAR HGB CONC 31.6 g/dl (32.0-36.0); MEAN CORPUSCULAR VOLUME 79.9 fl (83.0-99.0); MEAN PLATELET VOLUME 8.8 fl (9.4-12.4); MONOCYTES ABSOLUTE AUTO 0.5 K/mm3 (0.0-0.8); MONOCYTES PERCENT AUTO 5.2 % (0.0-8.0); NEUTROPHILS ABSOLUTE AUTO 6.4 K/mm3 (1.8-7.7); NEUTROPHILS PERCENT AUTO 69.5 % (41.0-71.0); PLATELET COUNT,PLT 263 K/mm3 (150-400); RED BLOOD CELL COUNT 5.51 M/mm3 (4.52-5.90); WHITE BLOOD CELL COUNT,WBC 9.24 K/mm3 (3.9-11.3)
[2025-02-12 22:01] LABS: ALBUMIN 3.9 g/dl (3.4-5.0); ANION GAP 11.7 (5-15); BUN/CREATININE RATIO 13.6 (14-18); CALCIUM 9.9 mg/dL (8.5-10.1); CREATININE 1.1 mg/dL (0.7-1.3); EST CRCL DRUG DOSING (CG) 77.73 mL/min; POTASSIUM,K 3.7 mEq/L (3.5-5.1); PROTEIN TOTAL,TP 7.8 g/dl (6.4-8.2)
[2025-02-12] MEDS: Iopamidol 612 MG/ML 100 ML Bottle IVPUSH ONE (22:08)
[2025-02-12] MEDS: Sodium Chloride 0.9% 1,000 ML IV ONE (22:39)
[2025-02-12 22:59] LABS: APPEARANCE,URINE CLEAR (Clear); BILIRUBIN,URINE NEGATIVE (Negative); COLOR,URINE YELLOW (Yellow); GLUCOSE,URINE NEGATIVE (Negative); KETONES,URINE NEGATIVE (Negative); LEUKOCYTE ESTERASE,URINE NEGATIVE (Negative); NITRITE,URINE NEGATIVE (Negative); OCCULT BLOOD,URINE TRACE-INTACT (Negative); PROTEIN,URINE NEGATIVE (Negative); UROBILINOGEN,URINE 0.2 (0.2-1.0)
[2025-02-12 23:34] LABS: EPITHELIAL CELLS,URINE 0-5 /hpf (0-5); WBC,URINE 0-5 /hpf (0-5)
[2025-02-12 23:35] LABS: BACTERIA,URINE FEW /hpf (FEW); MUCUS,URINE FEW /hpf (FEW)
== END 2025-02-13 02:08 | disposition home or self-care (01) ==
LOC: JD.ED 21:20
DX: M54.50 Low back pain, unspecified (principal); I10 Essential (primary) hypertension; E78.00 Pure hypercholesterolemia, unspecified; Z86.16 Personal history of COVID-19; Z90.49 Acquired absence of other specified parts of digestive tract; Z79.899 Other long term (current) drug therapy; Z79.82 Long term (current) use of aspirin; Z88.8 Allergy status to other drugs, medicaments and biological substances; V43.52XA Car driver injured in collision with other type car in traffic accident, initial encounter
CPT/HCPCS: 36415; 70450; 71260; 72125; 74177; 80053; 81001; 83690; 85025; 99284; J7030; Q9967